=== PATIENT | male | born 1965 | race Caucasian/White ===

== ENCOUNTER 2017-05-22 08:11 | Outpatient (CLI) ==
[2016-07-04 08:52] VITALS: BMI 35.2
[2017-05-22 08:46] LABS: CREATININE 1.04 mg/dL (0.60-1.10)
--- NOTE | 2017-05-22 09:47 | CT ---
EXAM: CT scan of the abdomen and pelvis with and without contrast HISTORY: Left lower quadrant pain TECHNIQUE: Imaging of the abdomen and pelvis was performed before and after the intravenous adminis tration of contrast. 5 mm thin axial images and coronal and sagittal reconstructions were provided for interpretation. FINDINGS: Low density changes are seen throughout the parenchyma of the liver. The Hounsfield unit s of the liver measure 37. Postoperative changes are seen along the stomach. The pancreas, adrenal glands and kidneys appear normal. The proximal ureters are normal size. The small and large bowel loops are normal in caliber. The appendix appears normal. There is no free air. No acute abnorma lities are seen within the anterior abdominal wall. The helical images obtained through the pelvis demonstrate a normal appearance of the rectum, urinar y bladder. There is no free fluid seen within the pelvis. Inflammatory changes are seen along the lateral aspect of the proximal sigmoid colon seen on axial image number 77. IMPRESSION: Acute epiploic appendagitis of the proximal sigmoid colon. No evidence for bowel obstruction or abscess formation. Fatty infiltration of the liver.
== END 2017-05-22 08:12 | disposition home or self-care (01) ==
LOC: RAD 08:11
PROVIDERS: ATTEND Physician Assistant Medical
DX: R10.32 Left lower quadrant pain (principal)
CPT/HCPCS: 36415; 82565

== ENCOUNTER 2018-06-14 15:54 | Outpatient (CLI) ==
[2016-07-04 08:52] VITALS: BMI 35.2
== END 2018-06-14 15:55 | disposition home or self-care (01) ==
LOC: LAB 15:54
PROVIDERS: ATTEND Family Medicine
DX: I10 Essential (primary) hypertension (principal); Z12.5 Encounter for screening for malignant neoplasm of prostate; R53.82 Chronic fatigue, unspecified; E29.1 Testicular hypofunction; E03.9 Hypothyroidism, unspecified; E66.9 Obesity, unspecified; J30.9 Allergic rhinitis, unspecified; G47.00 Insomnia, unspecified; E78.5 Hyperlipidemia, unspecified; E55.9 Vitamin D deficiency, unspecified; D64.9 Anemia, unspecified; D58.2 Other hemoglobinopathies; Z79.899 Other long term (current) drug therapy; R68.82 Decreased libido; N52.9 Male erectile dysfunction, unspecified; Z00.00 Encounter for general adult medical examination without abnormal findings; Z13.220 Encounter for screening for lipoid disorders; F32.9 Major depressive disorder, single episode, unspecified; D47.1 Chronic myeloproliferative disease
CPT/HCPCS: 36415; 80053; 80061; 84439; 84443; 85025